=== PATIENT | female | born 1945 | race Caucasian/White ===

== ENCOUNTER → 2018-01-20 | Outpatient (CLI) | payer MEDICARE ==
--- NOTE | 2018-01-20 19:02 | Diagnostic Imaging Report ---
INDICATION: Routine screening. The current study was also evaluated with a Computer Aided Detection (CAD) system. Comparison is made with prior studies from 02/07/2016 and 02/28/2014. FINDINGS: Moderate parenchymal density is identified bilaterally. The overall parenchymal pattern appears stable. Circumscribed densities in both breasts appear stable and consistent with benign etiologies. Benign calcifications are noted bilaterally as well. There is a density identified in the retroareolar right breast best seen on 3D slice position 21. No correlate is identified on the CC view. The left breast is unremarkable. The axillae are unremarkable. IMPRESSION: Right breast density. Additional views including spot compression and 90-degree lateral views are recommended. ACR BI-RADS Category 0: Incomplete. (Needs additional imaging evaluation). Result letter will be mailed to the patient. Note: At least 10% of breast cancer is not imaged by mammography. Dictated by: Dictated on workstation # [id number]
== END ==
LOC: RAD 10:49
PROVIDERS: ATTEND Family Medicine
DX: Z12.31 Encounter for screening mammogram for malignant neoplasm of breast (principal); M85.88 Other specified disorders of bone density and structure, other site; R29.890 Loss of height; Z78.0 Asymptomatic menopausal state
CPT/HCPCS: 77067

== ENCOUNTER → 2018-01-28 | Outpatient (CLI) | payer MEDICARE ==
--- NOTE | 2018-01-28 16:22 | Diagnostic Imaging Report ---
Indication: Right breast density. The patient presents for additional views. Correlation is made with prior study from 01/20/2018. The patient returned and 3-D spot compression, CC and mediolateral views as well as 3-D conventional 9 degree lateral view was performed. There is a persistent slightly nodular density noted on the ML views, which appears to be approximately 12 o'clock retroareolar. No corresponding density on the spot compression CC view is seen. No suspicious calcifications are identified. Impression: Residual nodularity in the retroareolar right breast. Further evaluation with ultrasound is recommended. BI-RADS 0 ACR BI-RADS Category 0: Incomplete. (Needs additional imaging evaluation). Result letter will be mailed to the patient. Note: At least 10% of breast cancer is not imaged by mammography. Dictated on workstation # [id number]
--- NOTE | 2018-01-28 16:22 | Diagnostic Imaging Report ---
Indication: Right breast density. Correlation is made with diagnostic mammogram earlier the same day. Sonographic interrogation of the retroareolar right breast was performed. No solid or cystic masses are seen. No abnormality is identified to account for the small nodular density in the retroareolar right breast on recent mammogram. Impression: BI-RADS category 3 No sonographic abnormality is identified. The density noted on recent mammogram may represent fibroglandular tissue. Even so, followup right mammogram in 6 months recommended to confirm stability. ACR BI-RADS Category 3: Probably benign findings. Result letter will be mailed to the patient. Note: At least 10% of breast cancer is not imaged by mammography. Dictated on workstation # [id number]
== END ==
LOC: RAD 12:26
PROVIDERS: ATTEND Family Medicine
DX: N63.10 Unspecified lump in the right breast, unspecified quadrant (principal)

== ENCOUNTER → 2018-08-08 | Outpatient (CLI) | payer MEDICARE ==
--- NOTE | 2018-08-08 19:30 | Diagnostic Imaging Report ---
INDICATION: Right breast density. Patient presents for six-month followup. COMPARISON: Correlation is made with prior mammograms from 01/20/2018 and 02/07/2018. TECHNIQUE: 2D and 3D unilateral right diagnostic mammography was performed including CC, MLO, and mediolateral views. The current study was also evaluated with a Computer Aided Detection (CAD) system. FINDINGS: Moderate density in the retroareolar right breast remains. Overall parenchymal pattern is stable. No dominant mass or malignant appearing microcalcifications are seen. There are circumscribed densities retroareolar, which have been present on prior studies and most consistent with cysts. Right axilla is unremarkable. IMPRESSION: Stable right mammogram. Patient should return in six months for additional mammographic followup. ACR BI-RADS Category 3: Probably benign findings. Result letter will be mailed to the patient. Note: At least 10% of breast cancer is not imaged by mammography. Dictated by: Dictated on workstation # [id number]
== END ==
LOC: RAD 12:24
PROVIDERS: ATTEND Family Medicine
DX: R92.2 Inconclusive mammogram (principal)

== ENCOUNTER → 2019-02-01 | Outpatient (CLI) | payer MEDICARE ==
--- NOTE | 2019-02-01 16:55 | Diagnostic Imaging Report ---
INDICATION: Hypothyroidism, thyromegaly. TECHNIQUE: Grayscale sonographic images of the thyroid gland. CORRELATION STUDY: None. FINDINGS: RIGHT LOBE: 1.8 x 0.9 x 0.5 cm. LEFT LOBE: 2.0 x 0.4 x 0.9 cm. Both lobes of the thyroid gland are small and fairly heterogeneous, suggestive of likely fibrosis. No definitive mass. IMPRESSION: Diffusely small thyroid gland heterogeneous echotexture suggestive of likely fibrosis. No definitive mass lesion. If further assessment of function is desired, a thyroid scan and uptake would be recommended. (Normal gland size: 4-5 x 2 x 2 cm) Dictated by: Dictated on workstation # [id number]
--- NOTE | 2019-02-01 18:59 | Diagnostic Imaging Report ---
INDICATION: Six-month follow-up of right breast densities. Correlation is made with prior mammograms from 02/07/2016, 01/20/2018, and right mammogram from 08/08/2018. 2-D and 3-D bilateral diagnostic mammography was performed with Computer-Aided Detection (CAD) system. FINDINGS: Scattered fibroglandular densities are noted. Overall parenchymal pattern is stable. No discrete mass is seen. Intraparenchymal lymph node in the upper-outer left breast is stable. No suspicious calcifications are seen. Axillae are unremarkable. IMPRESSION: Stable bilateral mammograms. Patient may return to routine annual screening mammography. ACR BI-RADS Category 2: Benign findings. Result letter will be mailed to the patient. Note: At least 10% of breast cancer is not imaged by mammography. Dictated by: Dictated on workstation # [id number]
== END ==
LOC: RAD 12:34
PROVIDERS: ATTEND Family Medicine
DX: E01.0 Iodine-deficiency related diffuse (endemic) goiter (principal); R92.2 Inconclusive mammogram
CPT/HCPCS: 76536; 77066

== ENCOUNTER → 2020-01-23 | Outpatient (CLI) | payer MEDICARE ==
--- NOTE | 2020-01-23 12:07 | Diagnostic Imaging Report ---
INDICATION: Screening for osteoporosis. COMPARISON: 01/20/2018 FINDINGS: The bone mineral density of the hips and spine was measured. The study was compared to the prior exam of 01/20/2018. The T score for the spine is -0.5. This is identical to the T score from the prior exam. The total T score for the left hip is -2.2 and for the right hip -2.0. On the prior exam, the respective T-scores were -2.1 and -2.0. The T score for the left femoral neck is -2.6 and for the right -2.5. Previously, the T scores were -2.8 and -2.6. AP Spine L1-L4: [BMD (g/cm2): 1.139] [T-Score: -0.5] [Z-Score: 1.5] [BMD Previous: 1.136] [BMD % Change: 0.3] LT Hip Neck: [BMD (g/cm2): 0.675] [T-Score: -2.6] [Z-Score: -0.6] LT Hip Total: [BMD (g/cm2):0.731] [T-Score:-2.2] [Z-Score: -0.3] [BMD Previous: 0.737] [BMD % Change: -0.8] RT Hip Neck: [BMD (g/cm2):0.688] [T-Score:-2.5] [Z-Score:-0.5] RT Hip Total: [BMD (g/cm2):0.751] [T-score:-2.0] [Z-Score:-0.2] [BMD Previous:0.761] [BMD % Change:-1.3] *Indicates significant change from prior examination based on 95% confidence level. World Health Organization criteria for BMD interpretation classify patients as Normal (T-score at or above -1.0), Osteopenic (T-score between -1.0 and -2.5) or Osteoporotic (T-score at or below -2.5). LIMITATIONS AND MODIFICATION: None. FRACTURE RISK (FRAX SCORE): The ten year probability of (%): Major Osteoporotic Fracture: [17.6] Hip Fracture: [5.6] IMPRESSION: 1. When compared to the prior exam, there has been no significant change. There has been a slight decrease in the total bone mineral density of the left hip. There has also been a slight increase in the bone mineral density of each femoral neck. The T-scores for the hips remain within the range of osteopenia while the T-scores for the femoral necks still indicate osteoporosis. 2. The T score for the lumbar spine is unchanged when compared to the prior exam and within normal limits. 3. See below National Osteoporosis Foundation guidelines on when to potentially initiate pharmacologic therapy. Based on the National Osteoporosis Foundation Guidelines, pharmacologic treatment should be initiated in any of the following, unless clinical conditions suggest otherwise: * Any patient with prior fragility fracture of the hip or vertebrae. A spine fracture indicates 5X risk for subsequent spine fracture and 2X risk for subsequent hip fracture. * Osteoporosis (T-score <-2.5). * Postmenopausal women and men age 50 and older with low bone mass/osteopenia (T-score between -1.0 and -2.5) by DXA and 10-year major osteoporotic fracture greater than 20% or a 10-year probability of hip fracture greater than 3%. These fracture risks are supplied above in the FRAX score, if applicable. * Clinician judgement and/or patient preferences may indicate treatment for people with 10-year fracture probabilities above or below these levels. Dictated by: Dictated on workstation # [id number]
--- NOTE | 2020-01-23 16:46 | Diagnostic Imaging Report ---
Digital mammogram, bilateral screening The study was compared to the prior exams of 02/01/2019, 08/08/2018, 01/20/2018 and 02/07/2016. There are no current complaints. The current study was also evaluated with a Computer Aided Detection (CAD) system. FINDINGS: The fibroglandular tissue in both breasts is heterogeneously dense. This does limit the sensitivity of this exam. Overall, there does not appear to have been any significant change when compared to the prior study. No primary or secondary sign of malignancy is noted. IMPRESSION: There is no radiographic evidence for malignancy. ACR category 1 ACR BI-RADS Category 1: Negative. Result letter will be mailed to the patient. Note: At least 10% of breast cancer is not imaged by mammography. Dictated by: Dictated on workstation # [id number]
== END ==
LOC: RAD 11:02
PROVIDERS: ATTEND Family Medicine
DX: Z12.31 Encounter for screening mammogram for malignant neoplasm of breast (principal); M81.0 Age-related osteoporosis without current pathological fracture
CPT/HCPCS: 77067; 77080

== ENCOUNTER → 2020-12-18 | Outpatient (CLI) | payer MEDICARE | LOC: CARD 10:00 | PROVIDERS: ATTEND Family Medicine | DX: R00.2 Palpitations (principal) | CPT/HCPCS: 93005; 93225; 93226 ==

== ENCOUNTER 2020-12-25 13:00 | Observation (INO) | payer MEDICARE ==
[~2020-12-25] VITALS: Ht 147 cm; Wt 59.0 kg
[2020-12-25] VITALS (10 sets, daily range): BP systolic 111–157; BP diastolic 60–78
[2020-12-25 11:13] LABS: HEMOGLOBIN 13.1 g/dL (11.5-16.0); MEAN PLATELET VOLUME 9.7 fL (9.0-12.2); WHITE BLOOD COUNT 6.8 10^3/uL (4.3-11.0)
--- NOTE | 2020-12-25 11:14 | Diagnostic Imaging Report ---
INDICATION: Palpitations, bradycardia, dizziness. FINDINGS: The lungs are clear. There is no failure, effusion, or pneumothorax. IMPRESSION: No acute appearing abnormality. Dictated by: Dictated on workstation # [id number]
[2020-12-25 11:33] LABS: ALBUMIN 4.4 GM/DL (3.2-4.5); BILIRUBIN,TOTAL 0.6 MG/DL (0.1-1.0); CALCIUM 9.6 MG/DL (8.5-10.1); CREATININE SERUM 1.04 MG/DL (0.60-1.30); POTASSIUM 3.9 MMOL/L (3.6-5.0); TOTAL PROTEIN 7.1 GM/DL (6.4-8.2)
--- NOTE | 2020-12-25 12:07 | Cardiac Procedure Note-CS/ASA ---
Pre-Procedure Note Pre-Op Procedure Note H&P Reviewed The H&P was reviewed, patient examined and no changes noted. Date H&P Reviewed: Dec 25, 2020 Time H&P Reviewed: 12:07 Conscious Sedation Pre-Proced Time 12:07 ASA Score 3 For ASA 3 and 4: Consider anesthesia and medical clearance. Also, for patients with a history of failed moderate sedation consider anesthesia. Airway Lungs Heart ASA score ASA 1: a normal healthy patient ASA 2: a patient with a mild systemic disease (mid diabetes, controlled hypertension, obesity x ASA 3: a patient with a severe systemic disease that limits activity (angina, COPD, prior Myocardial infarction) ASA 4: a patient with an incapacitating disease that is a constant threat to life (CHF, renal failure) ASA 5: a moribund patient not expected to survive 24 hrs. (ruptured aneurysm) ASA 6: a declared brain- patient whose organs are being harvested. For emergent operations, add the letter E after the classification Mallampati Classification Grade 3 Sedation Plan Analgesia, Amnesia, Plan communicated to team members, Discussed options with patient/fam, Discussed risks with patient/fam The patient is an appropriate candidate to undergo the planned procedure, sedation, and anesthesia. The patient immediately re-assessed prior to indication. PRITESH CARRILLO MD Dec 25, 2020 12:07
[~2020-12-25 13:00] MED LIST: ATOR10TA66 PO; BACITRACIN 50000 UNITS/500 ML NS IR ONE; BACITRACIN INJECTION 50,000 UNIT, SODIUM CHLORIDE 0.9% IRRIGATIO 500 ML IR ONE; CALC-823 PO; CHOL10002 PO; HEParin (CATH LAB) 1,000 ML IV ONE; LEVO88TA2 PO; LIDOCAINE 1% INJ 20 ML 20 ML VIAL ONE; MIDAZOLAM 5 MG/5 ML (VERSED) VIAL ONE; NS (IVPB) 50 ML ONE; NS IV 1000 ML 1,000 ML IV ONE; NS IV 1000 ML 1,000 ML ONE; ceFAZolin INJECTION 1,000 MG ONE; ceFAZolin INJECTION 1,000 MG VIAL IV ONE; fentaNYL INJECTION 100 MCG/2 ML AMP ONE
--- NOTE | 2020-12-25 14:07 | Permanent Pacemaker Implant ---
Dual Chamber Pacemaker Implant PROCEDURE PHYSICIAN: Chai Carrillo DUAL CHAMBER PACEMAKER IMPLANTATION: DATE OF PROCEDURE: 12/25/20 REFERRING PHYSICIAN: Dr. Cee Smart ATTENDING PHYSICIAN: Dr. Cee Smart INDICATION: Sick sinus syndrome PREOPERATIVE DIAGNOSIS: Sinus node dysfunction, paroxysmal atrial tachycardia POSTOPERATIVE DIAGNOSIS: Sinus node dysfunction, paroxysmal atrial tachycardia HISTORY: Dual-chamber permanent pacemaker was recommended. PROCEDURE PERFORMED: 1. Dual-chamber permanent pacemaker implantation. 2. Fluoroscopy. 3. Central venous access. ANESTHESIA: Local anesthesia, conscious sedation. COMPLICATIONS: None. ESTIMATED BLOOD LOSS:20 mL. SPECIMENS: None. ORAL ANTICOAGULATION: None. FLUOROSCOPY TIME: FLUOROSCOPY DOSE: CONTRAST DOSE: PROCEDURE DETAILS: The patient is a 75 female with history of palpitation, had a Holter monitor showing multiple episode of paroxysmal atrial tachycardia in addition to episode of severe bradycardia and asystole with sinus pause between 3-4.5 seconds. Multiple episode of tachycardia with a heart rate 170. Has been symptomatic. Decision was made to proceed with dual-chamber pacemaker. And after all of the patients questions were answered, the patient was brought to the EP Lab. The patient's left chest was prepped and draped in sterile fashion. A 2 inch horizontal incision was made 1 cm below the clavicle and dissection carried down to the pectoralis fascia. Using the modified Seldinger technique and under fluoroscopy guidance, the anterior aspect of the left axillary vein was accessed 2 times. The J wires were secured to the drapes with a mosquito clamp. A 7-Lao sheath was introduced over one of the J-wires. The RV lead was then inserted. The RV lead was directed across the tricuspid valve to the apical septal portion of the right ventricle. The position was checked in JAIME and NELSON views. The screw was deployed and the lead connected to the cnc operator programmer. Close sensing and pacing thresholds were obtained. Diaphragmatic pacing was ruled out. The lead was secured with 2-0 silk ties to the underlying muscle and fascia. Next, a 7-Lao sheath was introduced through the remaining J-wire. An atrial lead was then introduced and guided to the level of the right appendage. The screw was deployed and the lead was connected to the interrogator. Good sensing and pacing thresholds were obtained. Diaphragmatic pacing was ruled out. The leads were secured with 2-0 silk ties to the underlying muscle and fascia. The leads were connected to the device in a hermetic fashion. The device and leads were placed in the pocket. Aggressive irrigation with saline solution was done. The device was secured to the underlying muscle and fascia with a 2-0 silk tie. interrogation of the device revealed good integrity of all the leads and good connections. The wound was then closed using 2 layers. The first layer was interrupted 2-0 absorbable Vicryl suture. The last layer was a single subcuticular layer with 4- 0 Vicryl suture. Half inch Steri-Strips and a small dressing were then applied to the wound. The patient tolerated the procedure well and was returned to the recovery room in stable condition with stable vital signs. DEVICE INFORMATION: ISELA XT DR MRI Serial [id number] RA LEAD: [id number] RV LEAD: [id number] PER-OPERATIVE DEVICE INTERROGATION: Good sensing and capture activity IMMEDIATE POSTOPERATIVE DEVICE INTERROGATION: Atrial lead P-wave 1.7, impedance 627, threshold 0.4 ms at 0.9 V Ventricular lead R-wave 6.8, impedance 817, threshold 0.4 ms at 0.7 V Device interrogation P-wave 2.1 mV, impedance 589, threshold 1.25 at 0.4 ms R-wave 3.8 mV, impedance 779, threshold 0.75 at 0.4 ms PLAN: The patient transferred to the ICU. We will continue with two more doses of IV antibiotics. We will check a chest x-ray and interrogate the device in the morning. The patient will continue on oral antibiotics for 5 days. CONCLUSION: Successful implantation of dual-chamber pacemaker with no complication FINAL DIAGNOSIS: Sinus node dysfunction Paroxysmal atrial tachycardia Palpitation Hypertension CHAI CARRILLO MD Dec 25, 2020 2:07 pm
[2020-12-25] MEDS ORDERED: NS IV 1000 ML 1,000 ML IV SCH (14:15)
[2020-12-25] MEDS ORDERED: PATIENT MAY USE OWN MEDS, ALL PO SCH (14:15)
--- NOTE | 2020-12-25 14:45 | Diagnostic Imaging Report ---
INDICATION: pacemaker. TECHNIQUE: Single view chest 2:23 PM. CORRELATION STUDY: 12/25/2020 FINDINGS: Left-sided dual-chamber pacemaker present. Heart size abd mediastinum are unremarkable. The lungs are clear with no consolidating infiltrate. There is no significant effusion or pneumothorax. IMPRESSION: 1. Left-sided dual-chamber pacemaker has been placed. No evidence for postprocedure complication. Dictated by: Dictated on workstation # [id number]
[2020-12-25] MEDS: ceFAZolin INJECTION 1,000 MG in WATER (STERILE) FOR INJECTION 10 ML IV SCH (21:15)
[2020-12-25] MEDS ORDERED: ACETAMINOPHEN 325 MG TABLET ONE (21:28)
[2020-12-25] MEDS ORDERED: ACETAMINOPHEN 325 MG TABLET PO PRN (21:30)
[2020-12-26] VITALS: BP 108/59
[2020-12-26 04:00] VITALS: BP 118/94
[2020-12-26] MEDS ORDERED: MTP25TSR PO (05:46)
[2020-12-26] MEDS ORDERED: CEFU500T63 PO (05:46)
--- NOTE | 2020-12-26 05:46 | Discharge Inst-Post CATH ---
Discharge Inst-CATH/EP Problems Reviewed?: Yes Post Cardiac Cath/EP D/C Inst Follow Up/Plan Appointment with Dr Montano in one week <b>CARDIAC CATH/EP PROCEDURE DISCHARGE INSTRUCTIONS</b> ACTIVITY * Go Home directly and rest. * Limit activity of the leg (or wrist if it was used) for 7 days including aerobics, swimming, jogging, bicycling, etc. * Restrict stair-climbing for 7 days if possible, if not, climb up with your non-cath leg, then bring together on the same step. * Avoid lifting, pushing, pulling or excessive movement of the affected extremity for 7 days. * Customary sexual activity may be resumed after 2 days-use caution not to use a position that strains or causes pain to the affected extremity. * No driving for 24 hours. * NO SMOKING. * Avoid straining for bowel movements for 7 days. * Gentle walking on level ground is allowed. * Returning to work will depend on the type of procedure and the results. Your doctor will discuss this with you. CALL YOUR DOCTOR FOR ANY OF THE FOLLOWING: *If bleeding from the puncture site occurs- Apply gentle pressure to site with clean cloth and call your doctor or EMS. * If a knot or lump forms under the skin, increases in size, or causes pain. * If bruising appears to be worsening or moving further down your leg instead of disappearing. * Temperature above 101 F. CARE OF YOUR GROIN INCISION; * Bruising or purple discoloration of the skin near the puncture site is common. * You may shower only, no bathtub bathing for 5 days. Be careful to avoid slipping as your leg may feel stiff. * If a closure device was used on your femoral artery, please see the attached guide regarding care of the device and your leg. * Leave dressing on FOR 24 hours. CARE OF YOUR WRIST INCISION; * Bruising or purple discoloration of the skin near the puncture site is common. * You may shower. * DO NOT submerge wrist. * Leave dressing on FOR 24 hours. PRITESH MONTANO MD Dec 26, 2020 05:46
[2020-12-26] MEDS: ceFAZolin INJECTION 1,000 MG in WATER (STERILE) FOR INJECTION 10 ML IV SCH (06:04)
[2020-12-26] MEDS ORDERED: APIXABAN 5 MG (ELIQUIS) TABLET ONE (07:53)
[2020-12-26] MEDS ORDERED: meTOprolol 5 MG/5 ML (LOPRESSOR) VIAL ONE (07:53)
[2020-12-26 08:00] VITALS: BP 118/94
[2020-12-26] MEDS ORDERED: meTOprolol 5 MG/5 ML (LOPRESSOR) VIAL IV NR (08:00)
--- NOTE | 2020-12-26 08:01 | NUR ---
This RN notified by panel monitor that pt in afib, pt attempted valsva maneuver, pt denies any pain or discomfort at this tiem. attempted to get EKG, Dr. Montano in room at this time, see EMAR for new orders.
--- NOTE | 2020-12-26 08:19 | NUR ---
Dr. Montano in room at this time, see EMAR for new orders.
[2020-12-26] MEDS ORDERED: meTOprolol 5 MG/5 ML (LOPRESSOR) VIAL IV ONE (08:30)
[2020-12-26] MEDS ORDERED: LEVOTHYROXINE 88 MCG (LEVOTHORID) TAB PO SCH (09:00)
[2020-12-26] MEDS ORDERED: APIXABAN 5 MG (ELIQUIS) TABLET PO SCH (09:00)
--- NOTE | 2020-12-26 10:12 | Cardiology Progress Note ---
Subjective Date Seen by Provider: Dec 26, 2020 Time Seen by Provider: 10:09 Subjective/Events-last exam patient is laying down in bed, was ready to go home then went to a new onset atrial fibrillation with rapid ventricular response Review of Systems General: No Chills, No Night Sweats, No Fatigue, No Malaise, No Appetite, No Other HEENT: No Head Aches, No Visual Changes, No Eye Pain, No Ear Pain, No Dysphasia, No Sinus Congestion, No Post Nasal Drip, No Sore Throat, No Other Pulmonary: No Dyspnea, No Cough, No Pleuritic Chest Pain, No Other Objective-Cardiology Exam Last Set of Vital Signs Vital Signs 12/26/20 12/26/20 08:00 08:05 Temp 36.7 Pulse 131 Resp 16 B/P (MAP) 118/94 (102) Pulse Ox 93 O2 Delivery Room Air Capillary Refill : General: Alert, Oriented X3, Cooperative HEENT: Atraumatic, PERRLA Neck: Supple, No JVD, No Thyromegaly Lungs: Clear to Auscultation, Normal Air Movement Heart: Normal S1, Normal S2, No Murmurs, Other (atrial fibrillation was rapid ventricular response) Abdomen: Normal Bowel Sounds, Soft, No Tenderness, No Hepatosplenomegaly, No Masses Extremities: No Clubbing, No Cyanosis, No Edema, Normal Pulses, No Tenderness/Swelling Skin: No Rashes, No Breakdown, No Significant Lesion Neuro: Normal Gait, Normal Speech, Strength at 5/5 X4 Ext, Normal Tone, Sensation Intact Psych/Mental Status: Mental Status NL, Mood NL Results Lab Laboratory Tests 12/25/20 11:00 A/P-Cardiology Admission Diagnosis sinus node dysfunction Permanent pacemaker Paroxysmal atrial fibrillation Hypertension Assessment/Plan sinus node dysfunction status post dual-chamber pacemaker implant, that her at this time. Continue to monitor, interrogation showed good sensing and capture activity. Next Atrial fibrillation, paroxysmal atrial tachycardia, went to atrial fibrillation this morning, given multiple doses of Lopressor IV, give her a dose of diltiazem and started on oral anticoagulation and she is tolerating them well. Next Hypertension, monitor blood pressure Hyperlipidemia, monitor lipids next Increased risk of coronary artery disease will need a stress test in the future. PRITESH CARRILLO MD Dec 26, 2020 10:12
--- NOTE | 2020-12-26 10:14 | NUR ---
Pt is Muslim but has not been active in many years and does not request sacraments. [place] offered blessing.
--- NOTE | 2020-12-26 10:28 | NUR ---
This RN notified Dr. Montano of HR 110-140s. Received new orders, see EMAR.
[2020-12-26] MEDS ORDERED: dilTIAZem DRIP PRE-MIX 125 ML IV SCH (10:30)
[2020-12-26] MEDS ORDERED: dilTIAZem DRIP PRE-MIX 125 ML IV ONE (10:33)
[2020-12-26 12:57] VITALS: BP 108/54
[2020-12-26] MEDS ORDERED: ceFAZolin INJECTION 1,000 MG in WATER (STERILE) FOR INJECTION 10 ML IV SCH (14:00)
[2020-12-26] MEDS ORDERED: DILT120C82 PO (14:28)
[2020-12-26] MEDS ORDERED: APIX5TAB PO (14:28)
[2020-12-26 15:05] VITALS: BP 110/61
== END 2020-12-26 15:55 | disposition home or self-care (01) ==
LOC: CSD 14:30 → CATH 12-26 10:12 → CSD 12-26 10:12
PROVIDERS: ADMIT Internal Medicine Cardiovascular Disease; ATTEND Internal Medicine Cardiovascular Disease
DX: I49.5 Sick sinus syndrome (principal); I10 Essential (primary) hypertension; E78.2 Mixed hyperlipidemia; Z79.899 Other long term (current) drug therapy; Z87.891 Personal history of nicotine dependence
CPT/HCPCS: 33208; 71045; 80053; 80061; 84443; 85027; 85610; 85730; 87081; 93005; 93306; C1785; C1898 ×2; 36415

== ENCOUNTER → 2021-08-04 | Outpatient (CLI) | payer MEDICARE ==
[~2021-08-04] MED LIST changes: +APIX5TAB PO; -BACITRACIN 50000 UNITS/500 ML NS IR ONE; -BACITRACIN INJECTION 50,000 UNIT, SODIUM CHLORIDE 0.9% IRRIGATIO 500 ML IR ONE; +CEFU500T63 PO; +CHOL-34 PO; -CHOL10002 PO; +DILT120C82 PO; -HEParin (CATH LAB) 1,000 ML IV ONE; -LIDOCAINE 1% INJ 20 ML 20 ML VIAL ONE; -MIDAZOLAM 5 MG/5 ML (VERSED) VIAL ONE; +MTP25TSR PO; -NS (IVPB) 50 ML ONE; -NS IV 1000 ML 1,000 ML IV ONE; -NS IV 1000 ML 1,000 ML ONE; +REGADENOSON 0.4 MG/5 ML SYR (LEXISCAN) IV ONE; -ceFAZolin INJECTION 1,000 MG ONE; -ceFAZolin INJECTION 1,000 MG VIAL IV ONE; -fentaNYL INJECTION 100 MCG/2 ML AMP ONE
[2021-08-04] MEDS: CATHETER FLUSH 10 ML SYR IV PRN ×2 (08:04→09:12)
[2021-08-04 09:04] VITALS: BP 146/87
--- NOTE | 2021-08-04 11:02 | Cardiology Stress Test Report ---
Stress Test Report Date of Procedure/Referring: Date of Procedure: Aug 04, 2021 Mindy Hogue Admitting Physician Mago Smart DO Indications: PAF Baseline Heart Rate: 88 Baseline Blood Pressure: Blood Pressure Systolic: 146 Blood Pressure Diastolic: 87 Baseline Vitals Vital Signs Date Time Temp Pulse Resp B/P (MAP) Pulse Ox O2 Delivery O2 Flow Rate FiO2 08/04/21 09:04 90 16 146/87 (106) 97 Room Air Baseline EKG: Baseline EKG: Sinus rhythm, 1st degree AV block Summary After explaining the procedure to the patient, she signed a consent and then brought to the stress nuclear laboratory. Patient received 0.4 mg Lexiscan for stress test, ECG, heart rate and blood pressure were monitored continuously. Resting and stress dose of radio tracer were injected, imaging was acquired and reviewed in short axis, horizontal long axis and vertical long axis views. TID: 0.95 SSS: 2 SDS: 0 EF: 92 1. Patient tolerated Lexiscan well 2. Baseline sinus rhythm persisted during test 3. No significant ischemia or infarction on SPECT images 4. Normal left ventricular size, EF 92% PRITESH CARRILLO MD Aug 04, 2021 11:02
== END ==
LOC: CARD 07:45
PROVIDERS: ATTEND Physician Assistant
DX: I48.0 Paroxysmal atrial fibrillation (principal)
CPT/HCPCS: 78452; 93017; A9502

== ENCOUNTER → 2022-03-24 | Outpatient (CLI) | payer MEDICARE ==
[~2022-03-24] MED LIST changes: -REGADENOSON 0.4 MG/5 ML SYR (LEXISCAN) IV ONE
--- NOTE | 2022-03-24 13:41 | Diagnostic Imaging Report ---
INDICATION: Postmenopausal state, M81.0. COMPARISON: 01/23/2020. FINDINGS: AP Spine L1-L4: [BMD (g/cm2): 1.125] [T-Score: -0.6] [Z-Score: 1.2] [BMD Previous: 1.162] [BMD % Change: -3.2] LT Hip Neck: [BMD (g/cm2): 0.679] [T-Score: -2.6] [Z-Score: -0.6] LT Hip Total: [BMD (g/cm2):0.757] [T-Score:-2.0] [Z-Score: -0.2] [BMD Previous: 0.731] [BMD % Change: 3.6] RT Hip Neck: [BMD (g/cm2):0.690] [T-Score:-2.5] [Z-Score:-0.5] RT Hip Total: [BMD (g/cm2):0.787] [T-score:-1.8] [Z-Score:0.1] [BMD Previous:0.751] [BMD % Change:4.8] *Indicates significant change from prior examination based on 95% confidence level. World Health Organization criteria for BMD interpretation classify patients as Normal (T-score at or above -1.0), Osteopenic (T-score between -1.0 and -2.5) or Osteoporotic (T-score at or below -2.5). LIMITATIONS AND MODIFICATION: None. FRACTURE RISK (FRAX SCORE): The ten year probability of (%): Major Osteoporotic Fracture: [17.8] Hip Fracture: [5.9] IMPRESSION: 1. Osteoporosis. 2. Due to differences in equipment utilized between examinations, direct quantitative comparison is not possible to assess for interval change in bone mineral density. 3. See below National Osteopor[employer] Foundation guidelines on when to potentially initiate pharmacologic therapy. Based on the National Osteoporosis Foundation Guidelines, pharmacologic treatment should be initiated in any of the following, unless clinical conditions suggest otherwise: * Any patient with prior fragility fracture of the hip or vertebrae. A spine fracture indicates 5X risk for subsequent spine fracture and 2X risk for subsequent hip fracture. * Osteoporosis (T-score <-2.5). * Postmenopausal women and men age 50 and older with low bone mass/osteopenia (T-score between -1.0 and -2.5) by DXA and 10-year major osteoporotic fracture greater than 20% or a 10-year probability of hip fracture greater than 3%. These fracture risks are supplied above in the FRAX score, if applicable. * Clinician judgement and/or patient preferences may indicate treatment for people with 10-year fracture probabilities above or below these levels. Dictated by: Dictated on workstation # [id number]
== END ==
LOC: RAD 11:30
PROVIDERS: ATTEND Family Medicine
DX: M81.0 Age-related osteoporosis without current pathological fracture (principal); Z78.0 Asymptomatic menopausal state
CPT/HCPCS: 77080